=== PATIENT | female | born 1975 | race African-American/Black ===

== ENCOUNTER 2017-04-01 13:09 | Emergency (ER) | payer OTHER ==
[~2017-04-01] VITALS: Ht 157.5 cm; Wt 55.2 kg
[~2017-04-01 13:09] MED LIST: NASONEX17 GM BOTH NARES; NO HOME MEDS; PRENATAL VITAM1 EAC7 PO; TAMIFLU75 MG PO
[2017-04-01 14:09] LABS: ADD MIUA? YES; BILIRUBIN NEGATIVE; BLOOD MODERATE; COLOR YELLOW ((YELLOW)); GLUCOSE (STRIP) NEGATIVE; KETONES NEGATIVE; LEUKOCYTES NEGATIVE; NITRITE NEGATIVE; PROTEIN (STRIP) NEGATIVE; SPECIFIC GRAVITY 1.024 (1.000-1.030); UROBILINOGEN 0.2 MG/DL (0.2-1.0)
[2017-04-01 14:12] LABS: BACTERIA NONE SEEN /HPF; EPITHELIAL CELLS 1+ /HPF; MUCUS TRACE /LPF; RED BLOOD CELLS 0-5 /HPF (0-5); UCUL ADDED? NO; WHITE BLOOD CELLS 0-5 /HPF (0-5)
[2017-04-01 14:21] LABS: HEMATOCRIT 36.2 % (36.0-46.0); MCH 27.8 PG (29.0-34.0); MCV 86.8 FL (83-99); MEAN PLAT.VOLUME 10.2 uM^3 (9.5-12.4); PLATELET COUNT 186 K/uL (156-360); RBC DIS.WIDTH-CV 14.2 % (11.8-14.6); RBC DIS.WIDTH-SD 45.3 % (39-53); RED BLOOD COUNT 4.17 M/uL (3.80-5.20); WHITE BLOOD COUNT 6.1 K/uL (4.1-10.2)
[2017-04-01 14:31] LABS: CHLORIDE 107 mEq/L (99-109); POTASSIUM 3.6 mEq/L (3.7-5.4); SODIUM 139 mEq/L (136-147)
[2017-04-01 14:33] LABS: GLUCOSE 71 mg/dL (70-99)
[2017-04-01 14:35] LABS: ANION GAP 5 MEQ/L (2-14); TOTAL BILIRUBIN 0.4 mg/dL (0.0-1.0)
[2017-04-01 14:37] LABS: ALKALINE PHOSPHATASE 44 IU/L (3-129); GFR ESTIMATE (CALCULATED) > 59 mL/min/
[2017-04-01 14:38] LABS: UREA NITROGEN (BUN) 10 mg/dL (9-23)
[2017-04-01 14:46] LABS: QUANTITATIVE HCG < 4.0 MIU/ML
[2017-04-01] MEDS ORDERED: MOTRIN800 MG PO (15:48)
[2017-04-01 16:30] VITALS: BP 135/96
== END 2017-04-01 16:30 | disposition home or self-care (01) ==
LOC: EME 13:09
DX: N83.202 Unspecified ovarian cyst, left side (principal)
CPT/HCPCS: 76856; 80053; 81003; 84702; 85027; 93975; 99281; 99283